=== PATIENT | female | born 1985 | race Caucasian/White ===

== ENCOUNTER 2020-10-17 16:33 | Emergency (ER) | payer OTHER ==
[~2020-10-17 16:33] MED LIST: FLEXERIL 10 MG10 MG PO; IBUPROFEN800 MG PO; ZOFRAN ODT 4 MG4 MG GT
[2020-10-17] MEDS ORDERED: CYCLOBENZAPRINE10 MG PO (22:07)
== END 2020-10-17 17:50 | disposition left against medical advice (07) ==
LOC: ER1 16:33
DX: Z53.21 Procedure and treatment not carried out due to patient leaving prior to being seen by health care provider (principal)
CPT/HCPCS: 93005

== ENCOUNTER 2020-10-17 19:33 | Emergency (ER) | payer OTHER ==
[2020-10-17 20:13] LABS: HEMOGLOBIN 16.6 gm/dl (12.3-15.3); RED BLOOD COUNT 5.69 M/UL (4.00-5.10); WHITE BLOOD COUNT 17.5 K/UL (4.5-11.0)
[2020-10-17 20:31] LABS: BUN/CREATININE RATIO 30 (0-10)
[2020-10-17] MEDS ORDERED: CYCLOBENZAPRINE10 MG PO (22:07)
== END 2020-10-17 22:00 | disposition home or self-care (01) ==
LOC: ER1 19:33
PROVIDERS: Physician Assistant Medical
DX: R07.89 Other chest pain (principal); D72.829 Elevated white blood cell count, unspecified; E11.65 Type 2 diabetes mellitus with hyperglycemia; E78.5 Hyperlipidemia, unspecified; I10 Essential (primary) hypertension; Z90.49 Acquired absence of other specified parts of digestive tract; Z90.89 Acquired absence of other organs; Z88.6 Allergy status to analgesic agent; F17.200 Nicotine dependence, unspecified, uncomplicated
CPT/HCPCS: 71045; 80053; 82550; 82553; 83874; 84484; 85025; 93005; 99285